=== PATIENT | female | born 1960 | race Caucasian/White ===

== ENCOUNTER → 2016-04-05 | Outpatient (CLI) | payer MEDICARE ==
[~2016-04-05] MED LIST: ALLEGRA ALLERG180 MG PO; ATENOLOL100 MG PO; ATENOLOL50 MG PO; BYSTOLIC20 MG PO; HORMONE PILL; HYOPHEN TABLET1 EACH PO; LOSARTAN POTAS100 MG PO; TOPAMAX25 MG PO; VITAMIN D31000 UNI2 PO
== END | disposition home or self-care (01) ==
LOC: CDC 10:57
DX: Z01.810 Encounter for preprocedural cardiovascular examination (principal); N92.4 Excessive bleeding in the premenopausal period
CPT/HCPCS: 93000

== ENCOUNTER 2016-04-12 09:09 | Day surgery (SDC) | payer MEDICARE ==
[~2016-04-12] VITALS: Ht 177.8 cm; Wt 123.0 kg
[2016-04-12 09:31] VITALS: BP 144/66
[2016-04-12 12:26] VITALS: BP 130/85
[2016-04-12 13:20] VITALS: BP 150/79
== END 2016-04-12 13:45 | disposition home or self-care (01) ==
LOC: SDC 09:09
DX: N93.9 Abnormal uterine and vaginal bleeding, unspecified (principal); N90.4 Leukoplakia of vulva; L29.2 Pruritus vulvae; G47.30 Sleep apnea, unspecified; G25.81 Restless legs syndrome; I10 Essential (primary) hypertension; E66.9 Obesity, unspecified; Z68.38 Body mass index [BMI] 38.0-38.9, adult
CPT/HCPCS: 88305; J0330; J1100; J1885; J2250; J2405; J2765; J3010

== ENCOUNTER 2016-09-20 11:45 | Emergency (ER) | payer MEDICARE ==
[~2016-09-20] VITALS: Ht 177.8 cm; Wt 126.5 kg
[2016-09-20 12:58] LABS: EOSINOPHIL (%) 4.6 % (0-5); EOSINOPHIL COUNT 0.4 K/uL (0-0.3); HEMATOCRIT 42.8 % (36.0-46.0); IMMATURE GRANULOCYTE (%) 0.6 % (0.0-0.7); IMMATURE GRANULOCYTE COUNT 0.1 K/uL; INSTRUMENT ABS NEUTROPHIL CT 4.4 K/uL; LYMPHOCYTE COUNT 2.6 K/uL (1.0-2.8); MCH 28.7 PG (29.0-34.0); MCHC 32.9 G/DL (30.0-36.0); MCV 87.2 FL (83-99); MEAN PLAT.VOLUME 11.5 uM^3 (9.5-12.4); MONOCYTE (%) 7.3 % (3-12); MONOCYTE COUNT 0.6 K/uL (0-0.8); NEUTROPHIL (%) 54.3 % (45-76); NEUTROPHIL COUNT 4.4 K/uL (1.8-6.4); PLATELET COUNT 280 K/uL (156-360); RBC DIS.WIDTH-CV 12.4 % (11.8-14.6); RBC DIS.WIDTH-SD 39.6 % (39-53); RED BLOOD COUNT 4.91 M/uL (3.80-5.20); WHITE BLOOD COUNT 8.1 K/uL (4.1-10.2)
[2016-09-20 13:14] LABS: CHLORIDE 106 mEq/L (99-109); POTASSIUM 4.1 mEq/L (3.7-5.4); SODIUM 138 mEq/L (136-147)
[2016-09-20 13:16] LABS: GLUCOSE 93 mg/dL (70-99)
[2016-09-20 13:18] LABS: ANION GAP 6 MEQ/L (2-14); TOTAL BILIRUBIN 1.2 mg/dL (0.0-1.0)
[2016-09-20 13:20] LABS: ALKALINE PHOSPHATASE 101 IU/L (3-129); GFR ESTIMATE (CALCULATED) > 59 mL/min/
[2016-09-20 13:21] LABS: UREA NITROGEN (BUN) 12 mg/dL (9-23)
[2016-09-20 13:25] LABS: TROP-I INTERPRETATION NEGATIVE; TROPONIN-I < 0.01 ng/mL (0.0-0.30)
[2016-09-20 15:38] LABS: ADD MIUA? NO; BILIRUBIN NEGATIVE; BLOOD NEGATIVE; COLOR STRAW ((YELLOW)); GLUCOSE (STRIP) NEGATIVE; KETONES NEGATIVE; LEUKOCYTES NEGATIVE; NITRITE NEGATIVE; PROTEIN (STRIP) NEGATIVE; SPECIFIC GRAVITY 1.006 (1.000-1.030); UCUL ADDED? NO; UROBILINOGEN 0.2 MG/DL (0.2-1.0)
[2016-09-20 15:43] LABS: TROP-I INTERPRETATION NEGATIVE; TROPONIN-I < 0.01 ng/mL (0.0-0.30)
[2016-09-20 16:44] VITALS: BP 148/77
== END 2016-09-20 16:44 | disposition home or self-care (01) ==
LOC: EME 11:45
PROVIDERS: Emergency Medicine
DX: R07.9 Chest pain, unspecified (principal); I10 Essential (primary) hypertension; K21.9 Gastro-esophageal reflux disease without esophagitis; J45.909 Unspecified asthma, uncomplicated; M79.7 Fibromyalgia; Z90.49 Acquired absence of other specified parts of digestive tract
CPT/HCPCS: 71020; 80053; 81003; 84484; 85025; 93005; 99281; 99284

== ENCOUNTER 2017-09-19 18:52 | Emergency (ER) | payer MEDICARE ==
[~2017-09-19] VITALS: Ht 177.8 cm; Wt 127.9 kg
[2017-09-19 21:51] VITALS: BP 172/94
== END 2017-09-19 22:08 | disposition home or self-care (01) ==
LOC: EME 18:52 → EXP 18:52
PROC: 3E0234Z Introduction of Serum, Toxoid and Vaccine into Muscle, Percutaneous Approach (ICD-10-PCS; principal; 2017-09-19)
DX: Z20.3 Contact with and (suspected) exposure to rabies (principal); Z23 Encounter for immunization; Z29.14 Encounter for prophylactic rabies immune globulin
CPT/HCPCS: 99281; 99284